=== PATIENT | male | born 1965 | race Caucasian/White ===

== ENCOUNTER 2016-12-02 08:15 | Emergency (ER) | payer OTHER ==
[~2016-12-02] VITALS: Ht 175.3 cm; Wt 124.7 kg
[~2016-12-02 08:15] MED LIST: ALBUTEROL0.09 MG/A1 INH; AMOXIL 875 MG875 MG PO; CALCIUM 600600 M1 PO; FISH OIL CONCEN1 SGL PO; GUAIFENESIN-CO118 ML PO; KLONOPIN0.5 M1 PO; MEDROL DOSEPAK1 PAC PO; MOTRIN 600 MG600 MG PO; MULTIVITAMIN1 TAB PO; PREDNISOLO15 MG/5 M4 PO; PREDNISONE 20MG20 MG PO; PROVENTIL HFA6.7 GM INH; ROBITUSSIN W/CO10 ML PO; TESSALON PERLE100 MG PO; ZITHROMAX Z-PA250 M1 PO; ZITHROMAX250 M2 PO; ZOFRAN ODT4 M1 SL
[2016-12-02 08:26] VITALS: BP 153/89
[2016-12-02] MEDS ORDERED: AZITHROMYCIN250 M1 PO (09:08)
--- NOTE | 2016-12-02 09:08 | ED INFLUENZA/URI COMPLAINT ---
History of Present Illness General Chief Complaint: Upper Respiratory Sx/Fever Stated Complaint: "I HAVE A COLD" Source: patient Exam Limitations: no limitations Vital Signs & Intake/Output Vital Signs & Intake/Output ED Intake and Output 12/03 0000 12/02 1200 Intake Total 0 Output Total Balance 0 Intake, Oral 0 Patient 275 lb Weight Allergies Coded Allergies: No Known Allergies (12/02/16) Reconcile Medications Azithromycin 250 MG TABLET 1 DP PO AD sinusitis 2 the first day followed by 1 for days 2-5 Ondansetron (Zofran Odt) 4 MG TAB.RAPDIS 1 TAB SL TID PRN NAUSEA Triage Note: TRIAGE: PT TO ER C/C DULL CHEST PAIN X 1 WK, DIFFICULTY BREATHING, "MY EARS ARE PLUGGED UP" AND "CONSTANT COUGHING". COUGH IS PRODUCTIVE AT TIMES WITH GREEN/YELLOW PHLEGM REPORTED. Triage Nurses Notes Reviewed? yes HPI: This patient is a 51-year-old male who presented upper respiratory complaints times one week. He reported that he has a cough productive of yellow sputum. He reported that he gets pain in his chest when he coughs. The patient reported sinus pressure and ear pain. He also reported that he has been feeling, "wiped out." No difficulty breathing, fevers, chills, visual changes, abdominal pain, nausea, or vomiting (RAZIA GARCIA PA-C) Past History Travel History Traveled to [place] past 21 day No Medical History Any Pertinent Medical History? see below for history Neurological: NONE EENT: NONE Cardiovascular: NONE Respiratory: NONE Gastrointestinal: NONE Hepatic: NONE Renal: NONE Musculoskeletal: degen joint disease Psychiatric: anxiety, depression Endocrine: NONE Blood Disorders: NONE Cancer(s): NONE AUTOMATION CONTROL TECHNICIAN/Reproductive: NONE Surgical History Surgical History: none Psychosocial History What is your primary language Lao Tobacco Use: Never used ETOH Use: denies use Illicit Drug Use: denies illicit drug use Family History Hx Contributory? No (RAZIA GARCIA PA-C) Review of Systems Review of Systems Constitutional: Reports: no symptoms. EENTM: Reports: see HPI. Respiratory: Reports: see HPI. Cardiovascular: Reports: no symptoms. GI: Reports: no symptoms. Genitourinary: Reports: no symptoms. Musculoskeletal: Reports: no symptoms. Skin: Reports: no symptoms. Neurological/Psychological: Reports: no symptoms. All Other Systems: Reviewed and Negative (RAZIA GARCIA PA-C) Physical Exam Physical Exam Ears, Nose, Throat: moist mucous membrane, BILATERAL tmS PEARLY RAY NONBULGING. bILATERAL EXTERNAL AUDITORY CANALS WITHOUT EDEMA OR ERYTHEMA. nO PHARYNGEAL INJECTION OR TONSILLAR EXHIBIT aids. nO TRISMUS OR DROOLING. nO UVULAR SHIFT. tENDERNESS TO PALPATION OVER THE SINUSES Comments: Well-developed well-nourished person in no acute distress Pupils equally round and reactive to light. Nose is atraumatic. Neck: Supple, no lymphadenopathy Back: Normal gait Cardiovascular: Regular rate and rhythm with no murmurs, rubs, or gallops Respiratory: Chest nontender. No respiratory distress. Breath sounds clear to auscultation bilaterally with no wheezes, rales, or rhonchi Extremity: Normal and equal pulses Neuro: Alert oriented x3, cranial nerves II through XII grossly intact. Skin: No appreciable rash on exposed skin, skin is warm and dry. Psych: Mood and affect is normal Core Measures Severe Sepsis Present: No Septic Shock Present: No (RAZIA GARCIA PA-C) Progress Differential Diagnosis: influenza, meningitis, neutropenia, otitis, pneumonia, pharyngitis, sinusitis Plan of Care: Orders Procedure Date/time Status EKG 12/02 828 Active Initial ED EKG: none (RAZIA GARCIA PA-C) Departure Departure Disposition: HOME OR SELF CARE Condition: Stable Clinical Impression Primary Impression: Sinusitis Qualifiers: Sinusitis location: unspecified location Chronicity: unspecified Qualified Code: J32.9 - Chronic sinusitis, unspecified Referrals: LIDIA RICO DO (PCP/Family) Additional Instructions: Take antibiotics as prescribed and for the full duration. Rest and stay hydrated. Return for any worsening symptoms or concerns. Departure Forms: Customer Survey General Discharge Information Prescriptions: Current Visit Scripts Azithromycin 1 DP PO AD #6 TAB 2 the first day followed by 1 for days 2-5 (RAZIA GARCIA PA-C) PA/HACK DRIVER Co-Sign Statement Statement: ED Attending supervision documentation- [] I saw and evaluated the patient. I have also reviewed all the pertinent lab results and diagnostic results. I agree with the findings and the plan of care as documented in the PA's/HACK DRIVER's documentation. [X] I have reviewed the ED Record and agree with the PA's/HACK DRIVER's documentation. [] Additions or exceptions (if any) to the PAs/HACK DRIVER's note and plan are summarized below: [] (ISH RUIZ,KRISS)
== END 2016-12-02 09:18 ==
LOC: ERH 08:15
DX: J32.9 Chronic sinusitis, unspecified (principal)
CPT/HCPCS: 93005; 93010